=== PATIENT | male | born 2000 | race Hispanic/Latino ===

== ENCOUNTER 2018-01-12 00:31 | Emergency (ER) | payer OTHER, SELFPAY ==
--- NOTE | 2018-01-12 00:58 | EDPHYS ---
Physician Documentation [facility] Name: Michel Rutherford Age: 17 yrs Sex: Male : 2000 Arrival Date: 01/12/2018 Time: 00:34 Bed Waiting Private MD: Jam Myles, A ED Physician Denny Dumont HPI: 01/12 00:56 This 17 yrs old Male presents to ER via Unassigned with complaints of Rash. kb 00:56 The patient's rash thought to be caused by Contact allergy. The rash is located on the kb body diffusely. The rash can be described as macular, papular. Onset: The symptoms/episode began/occurred 2 day(s) ago. Associated signs and symptoms: Pertinent positives: itching, Pertinent negatives: burning sensation, difficulty breathing, fever, nausea, Pain swelling of lips, swelling of throat, swelling of tongue, vomiting, wheezing. Severity of symptoms: At their worst the symptoms were mild moderate in the emergency department the symptoms are unchanged. The patient has not experienced similar symptoms in the past. The patient has not recently seen a physician. Historical: - Allergies: 00:59 No Known Allergies; bb - Home Meds: 00:59 None [Active]; bb - PMHx: 00:59 None; bb - PSHx: 00:59 None; bb - Immunization history:: Adult Immunizations up to date. - Social history:: Smoking status: Patient/guardian denies using tobacco. ROS: 00:56 Constitutional: Negative for fever, chills, and weight loss, Cardiovascular: Negative kb for chest pain, palpitations, and edema, Respiratory: Negative for shortness of breath, cough, wheezing, and pleuritic chest pain, Abdomen/GI: Negative for abdominal pain, nausea, vomiting, diarrhea, and constipation, MS/Extremity: Negative for injury and deformity, Neuro: Negative for headache, weakness, numbness, tingling, and seizure. 00:56 Skin: Positive for rash, diffusely. Exam: 00:56 Constitutional: This is a well developed, well nourished patient who is awake, alert, kb and in no acute distress. Head/Face: Normocephalic, atraumatic. Chest/axilla: Normal chest wall appearance and motion. Nontender with no deformity. No lesions are appreciated. Cardiovascular: Regular rate and rhythm with a normal S1 and S2. No gallops, murmurs, or rubs. Normal PMI, no JVD. No pulse deficits. Respiratory: Lungs have equal breath sounds bilaterally, clear to auscultation and percussion. No rales, rhonchi or wheezes noted. No increased work of breathing, no retractions or nasal flaring. Abdomen/GI: Soft, non-tender, with normal bowel sounds. No distension or tympany. No guarding or rebound. No evidence of tenderness throughout. MS/ Extremity: Pulses equal, no cyanosis. Neurovascular intact. Full, normal range of motion. Neuro: Awake and alert, GCS 15, oriented to person, place, time, and situation. Cranial nerves II-XII grossly intact. Motor strength 5/5 in all extremities. Sensory grossly intact. Cerebellar exam normal. Normal gait. 00:56 Skin: consistent with contact dermatitis, and is diffusely located. Vital Signs: 00:59 BP 133 / 87; Pulse 66; Resp 18 S; Temp 98.4(O); Pulse Ox 100% on R/A; Weight 68.04 kg bb (R); Height 5 ft. 8 in. (172.72 cm) (R); Pain 0/10; 00:59 Body Mass Index 22.81 (68.04 kg, 172.72 cm) bb MDM: 00:52 Patient medically screened. kb 00:56 Data reviewed: vital signs, nurses notes. Data interpreted: Pulse oximetry: on room air kb is 100 %. Interpretation: normal. Counseling: I had a detailed discussion with the patient and/or guardian regarding: the historical points, exam findings, and any diagnostic results supporting the discharge/admit diagnosis, the need for outpatient follow up, a family practitioner, to return to the emergency department if symptoms worsen or persist or if there are any questions or concerns that arise at home. Administered Medications: 01:06 Drug: Pepcid 20 mg Route: PO; bb : Follow up: Response: Medication administered at discharge. bb :06 Drug: predniSONE 40 mg Route: PO; bb : Follow up: Response: Medication administered at discharge. bb Disposition: 01/12/18 00:57 Discharged to Home. Impression: Allergic contact dermatitis. - Condition is Stable. - Discharge Instructions: Poison Arabella, [id number], Contact Dermatitis, [id number]-[id number]. - Prescriptions for Pepcid 20 mg Oral Tablet - take 1 tablet by ORAL route every 12 hours for 5 days; 10 tablet. Prednisone 20 mg Oral Tablet - take 1 tablet by ORAL route once daily for 5 days; 5 tablet. - Medication Reconciliation Form, Thank You Letter, Antibiotic Education, Prescription Opioid Use form. - Follow up: Private Physician; When: 2 - 3 days; Reason: Recheck today's complaints, Continuance of care, Re-evaluation by your physician. Follow up: Emergency Department; When: As needed; Reason: Worsening of condition. Addendum: 01/13/2018 19:00 Co-signature as Attending Physician, Denny Dumont MD I agree with the assessment and c mtz plan of care. Signatures: Brandee Card, RAMP ATTENDANT-C RAMP ATTENDANT-Denny Ortiz MD MD cha Ballard, Brenda, RN RN bb
[2018-01-12] MEDS ORDERED: FAMOTIDINE 20 MG TAB ONE (01:03)
[2018-01-12] MEDS ORDERED: predniSONE 20 MG TAB ONE (01:04)
--- NOTE | 2018-01-12 01:09 | ER ---
Nurse's Notes [facility] Name: Michel Rutherford Age: 17 yrs Sex: Male : 2000 Arrival Date: 01/12/2018 Time: 00:34 Bed Waiting Private MD: Jam Myles A Diagnosis: Allergic contact dermatitis Presentation: 01/12 00:56 Presenting complaint: Patient states: I think I may have gotten into poison edwar a bb couple of days ago I have a rash which it itchy and spreading. Transition of care: patient was not received from another setting of care. Onset of symptoms was January 10, 2018. Initial Sepsis Screen: Does the patient meet any 2 criteria? No. Patient's initial sepsis screen is negative. Does the patient have a suspected source of infection? No. Patient's initial sepsis screen is negative. Care prior to arrival: None. 00:56 Method Of Arrival: Ambulatory bb 00:56 Acuity: QUINTON 5 bb Triage Assessment: 00:59 General: Appears in no apparent distress. Behavior is calm, cooperative. Pain: Denies bb pain. Neuro: Level of Consciousness is awake, alert, obeys commands, Oriented to person, place, time, situation. Cardiovascular: No deficits noted. Respiratory: Respiratory effort is even, unlabored. Derm: Rash noted that is itchy, red. Musculoskeletal: Circulation, motion, and sensation intact. Historical: - Allergies: 00:59 No Known Allergies; bb - Home Meds: 00:59 None [Active]; bb - PMHx: 00:59 None; bb - PSHx: 00:59 None; bb - Immunization history:: Adult Immunizations up to date. - Social history:: Smoking status: Patient/guardian denies using tobacco. Screenin:02 Abuse screen: Denies threats or abuse. Nutritional screening: No deficits noted. bb Tuberculosis screening: No symptoms or risk factors identified. Fall Risk None identified. Assessment: 01:01 Reassessment: No changes from previously documented assessment. see triage assessment. bb Brandee Card SUPERVISOR REFINING in triage for evaluation of pt. 01:07 Reassessment: pt and mother verbalized understanding of and agreed to plan of care bb discharge instructions given pt ambulated with steady gait to exit accompanied by parent. Vital Signs: 00:59 BP 133 / 87; Pulse 66; Resp 18 S; Temp 98.4(O); Pulse Ox 100% on R/A; Weight 68.04 kg bb (R); Height 5 ft. 8 in. (172.72 cm) (R); Pain 0/10; 00:59 Body Mass Index 22.81 (68.04 kg, 172.72 cm) bb ED Course: 00:34 Patient arrived in ED. es 00:35 Jam Myles MD is Private Physician. es 00:52 Brandee Card FNP-C is [facility]. kb 00:52 Denny Dumont MD is Attending Physician. kb 00:56 Nury Mcneil, RN is Primary Nurse. bb 00:59 Triage completed. bb 00:59 Arm band placed on right wrist. Family accompanied patient. bb 01:02 Patient has correct armband on for positive identification. Adult w/ patient. bb 01:02 No provider procedures requiring assistance completed. Patient did not have IV access bb during this emergency room visit. Administered Medications: 01:06 Drug: Pepcid 20 mg Route: PO; bb 01:07 Follow up: Response: Medication administered at discharge. bb 01:06 Drug: predniSONE 40 mg Route: PO; bb 01:07 Follow up: Response: Medication administered at discharge. bb Outcome: 00:57 Discharge ordered by MD. kb 01:08 Discharged to home ambulatory, with family. bb 01:08 Condition: stable 01:08 Discharge instructions given to patient, family, Instructed on discharge instructions, follow up and referral plans. medication usage, Demonstrated understanding of instructions, follow-up care, medications, Prescriptions given X 2. 01:08 Patient left the ED. bb Signatures: Brandee Card FNP-C FNP-Aaliyah Morin Nury Mcneil, RN RN bb
[2018-01-12 01:12] VITALS: BP 133/87; TEMP 98.4; O2SAT 100
== END 2018-01-12 01:08 | disposition home or self-care (01) ==
LOC: ER 00:31
DX: L23.9 Allergic contact dermatitis, unspecified cause (principal)
CPT/HCPCS: 99283; J7512

== ENCOUNTER 2018-05-28 16:21 | Emergency (ER) | payer SELFPAY ==
[2018-05-28] MEDS ORDERED: ONDANSETRON 4 MG/2 ML VIAL ONE (16:47)
[2018-05-28] MEDS ORDERED: MORPHINE 4 MG/ML SYR ONE (16:47)
[2018-05-28 16:55] LABS: Absolute Lymphocytes (CBC) 1.3 K/uL (0.7-4.9); Absolute Monocytes 0.9 K/uL (0.1-1.3); Absolute Neutrophil 14.3 K/uL (1.8-8.0); Basophils % 0.4 % (0-1.3); Eosinophils % 0.1 % (0-4.4); Hematocrit 53.8 % (39.6-49.0); Lymphocytes % 7.9 % (15.3-44.8); MCH 30.5 pg (27.0-35.0); MCV 87.4 fL (80-100); MPV 9.3 fL (7.6-11.3); Monocytes % 5.5 % (3.3-12.3); RBC Red Blood Cell Count 6.15 M/uL (4.33-5.43)
[2018-05-28] MEDS ORDERED: NA CHLORIDE 0.9% 1,000 ML ONE (17:07)
[2018-05-28 17:12] LABS: Albumin 5.6 g/dL (3.4-5.0); Bilirubin Direct 0.2 mg/dL (0-0.2); Bilirubin Total 0.7 mg/dL (0.2-1.0); Potassium 3.6 mmol/L (3.5-5.1); Protein, Total 9.5 g/dL (6.4-8.2)
--- NOTE | 2018-05-28 17:53 | RAD REPORT ---
EXAM DESCRIPTION: CT - Abdomen Pelvis W Contrast - 05/28/2018 5:37 pm CLINICAL HISTORY: Lower abdominal pain, vomiting, IV ONLY<Reason For Exam>Lower abdominal pain, vomi ting, IV ONLY COMPARISON: Abdomen Pelvis W Contrast dated 07/17/2016<Comparisons> TECHNIQUE: Biphasic, helical CT imaging of the abdomen and pelvis was performed following 100 ml non -ionic IV contrast. No oral contrast was given. All CT scans are performed using dose optimization technique as appropriate and may include automated exposure control or mA/KV adjustment according to patient size. FINDINGS: No suspicious findings in the lung bases. The liver, spleen, and pancreas show no suspicious findings. Gallbladder and biliary tree are also wi thout suspicious finding. Symmetric renal function is seen with no hydronephrosis or suspicious renal mass. No dilated bowel loops or bowel wall thickening. Appendix is not well defined. No direct or indirect evidence for appendicitis. No free air, free fluid or inflammatory stranding. No hernia, mass or bul ky lymphadenopathy. The urinary bladder is without significant finding. No adrenal abnormality. No suspicious bony findings. CT findings are not significantly different from June 2016. IMPRESSION: Contrast enhanced CT abdomen and pelvis showing no significant or suspicious finding.
--- NOTE | 2018-05-28 18:48 | ER ---
Nurse's Notes [facility] Name: Michel Rutherford Age: 17 yrs Sex: Male : 2000 Arrival Date: 05/28/2018 Time: 16:23 Bed 8 Private MD: Diagnosis: Vomiting;Unspecified abdominal pain Presentation: 05/28 16:29 Presenting complaint: Patient states: abd pain and vomiting since this morning, la1 actively vomiting in triage. Transition of care: patient was not received from another setting of care. Onset of symptoms was May 28, 2018. Risk Assessment: Do you want to hurt yourself or someone else? Patient reports no desire to harm self or others. Initial Sepsis Screen: Does the patient meet any 2 criteria? No. Patient's initial sepsis screen is negative. Does the patient have a suspected source of infection? No. Patient's initial sepsis screen is negative. Care prior to arrival: None. 16:29 Method Of Arrival: Ambulatory la1 16:29 Acuity: QUINTON 3 la1 Historical: - Allergies: 16:29 No Known Allergies; la1 - PMHx: 16:29 None; la1 - Immunization history:: Adult Immunizations up to date. - Social history:: Smoking status: Patient uses tobacco products, denies chronic smoking, but will smoke occasionally. - Ebola Screening: : No symptoms or risks identified at this time. Screenin:59 Abuse screen: Denies threats or abuse. Nutritional screening: No deficits noted. aa5 Tuberculosis screening: No symptoms or risk factors identified. Fall Risk None identified. Assessment: 16:35 General: Appears uncomfortable, Behavior is calm, cooperative. Pain: Complains of pain aa5 in right upper quadrant, left upper quadrant, right lower quadrant and left lower quadrant Pain does not radiate. Pain currently is 10 out of 10 on a pain scale. Quality of pain is described as crampy, Pain began today Is continuous. Neuro: Level of Consciousness is awake, alert, obeys commands, Oriented to person, place, time, situation. Cardiovascular: Heart tones S1 S2 present Rhythm is regular. Respiratory: Airway is patent Respiratory effort is even, unlabored, Respiratory pattern is regular, symmetrical. GI: Abdomen is flat, non-distended, Bowel sounds present X 4 quads. Abdomen is tender to palpation X 4 quads. Reports nausea, vomiting, since today Patient currently denies diarrhea. : No signs and/or symptoms were reported regarding the genitourinary system. EENT: No signs and/or symptoms were reported regarding the EENT system. Derm: Skin is pink, warm \\T\\ dry. Musculoskeletal: Range of motion: intact in all extremities. 17:03 Reassessment: Patient and/or family updated on plan of care and expected duration. Pain aa5 level reassessed. Patient is alert, oriented x 3, equal unlabored respirations, skin warm/dry/pink. Patient denies pain at this time. Pt states "the nausea is only a little better" . 17:28 Reassessment: Patient and/or family updated on plan of care and expected duration. Pain aa5 level reassessed. Patient is alert, oriented x 3, equal unlabored respirations, skin warm/dry/pink. Patient denies pain at this time. Patient states feeling better. Patient states symptoms have improved. GI: Patient currently denies nausea. 17:28 Reassessment: Pt taken to CT via stretcher . aa5 18:00 Reassessment: Patient and/or family updated on plan of care and expected duration. Pain aa5 level reassessed. Patient is alert, oriented x 3, equal unlabored respirations, skin warm/dry/pink. Patient denies pain at this time. 18:28 Reassessment: Patient and/or family updated on plan of care and expected duration. Pain aa5 level reassessed. Patient is alert, oriented x 3, equal unlabored respirations, skin warm/dry/pink. Patient denies pain at this time. Pt drank 300 cc of water, pt tolerated well, will monitor for vomiting per PA VO.. 18:44 Reassessment: Patient is alert, oriented x 3, equal unlabored respirations, skin aa5 warm/dry/pink. No vomiting noted or reported. . Vital Signs: 16:29 BP 131 / 84; Pulse 100; Resp 19; Temp 97.6; Pulse Ox 100% on R/A; Weight 70.31 kg; la1 Height 5 ft. 8 in. (172.72 cm); 17:00 BP 130 / 94; Pulse 58; Resp 16 S; Pulse Ox 95% on R/A; Pain 0/10; aa5 17:28 Pulse 56; Resp 14 S; Pulse Ox 100% on R/A; aa5 18:02 BP 123 / 72; Pulse 62; Resp 16 S; Pulse Ox 99% on R/A; aa5 16:29 Body Mass Index 23.57 (70.31 kg, 172.72 cm) la1 ED Course: 16:23 Patient arrived in ED. mr 16:29 Triage completed. la1 16:30 Arm band placed on right wrist. la1 16:31 Ashwini Brooks, URMILA is Primary Nurse. aa5 16:33 Lobito Orr PA is PHCP. jmm 16:33 Homero Gonzalez MD is Attending Physician. jmm 16:35 Patient has correct armband on for positive identification. Bed in low position. Call aa5 light in reach. Side rails up X2. Adult w/ patient. 16:37 Inserted saline lock: 20 gauge in right antecubital area, using aseptic technique. aa5 Blood collected. 16:42 Initial lab(s) drawn, by me, sent to lab. aa5 17:37 CT Abd/Pelvis - W/Contrast In Process Unspecified. EDMS 17:37 CT completed. Patient tolerated procedure well. Patient moved back from CT. bq 18:34 No provider procedures requiring assistance completed. aa5 18:47 Yoni Marion MD is Referral Physician. [facility] 19:00 IV discontinued, intact, bleeding controlled, No redness/swelling at site. Pressure aa5 dressing applied. Administered Medications: 16:43 Drug: morphine 4 mg Route: IVP; Site: right antecubital; aa5 17:03 Follow up: Response: No adverse reaction aa5 16:43 Drug: Zofran 4 mg Route: IVP; Site: right antecubital; aa5 17:03 Follow up: Response: No adverse reaction aa5 17:03 Drug: NS 0.9% 1000 ml Route: IV; Rate: 1 bolus; Site: right antecubital; aa5 18:02 Follow up: IV Status: Completed infusion aa5 18:44 Drug: Phenergan 6.25 mg Route: IVP; Site: right antecubital; aa5 18:50 Follow up: Response: No adverse reaction; Nausea is decreased aa5 Outcome: 18:47 Discharge ordered by . [facility] 19:00 Discharged to home ambulatory, with family. aa5 19:00 Condition: improved 19:00 Discharge instructions given to patient, Instructed on discharge instructions, follow up and referral plans. medication usage, Demonstrated understanding of instructions, follow-up care, medications, Prescriptions given X 1. 19:01 Patient left the ED. aa5 Signatures: Dispatcher [employer] EDMS Lobito Orr PA PA jmm Rivera, Maria AugustevangelinaIvania Audri RN RN aa5 Padilla Montana RN RN la1
--- NOTE | 2018-05-28 18:49 | EDPHYS ---
Physician Documentation [facility] Name: Michel Rutherford Age: 17 yrs Sex: Male : 2000 Arrival Date: 05/28/2018 Time: 16:23 Bed 8 Private MD: ED Physician Homero Gonzalez HPI: 05/28 17:31 This 17 yrs old Male presents to ER via Ambulatory with complaints of jmm Abdominal Pain, Vomiting. 17:31 The patient presents with abdominal pain in the lower abdomen. Onset: The jmm symptoms/episode began/occurred gradually, this morning. The symptoms do not radiate. Associated signs and symptoms: Pertinent positives: vomiting. This is a 17 yea rold male with no chronic medical conditions that presents to the ED with vomiting beginning this morning. patient states he drank 3 beers last night and describes himself as a "lightweight". Patient denies diarrhea, denies fever, denies recent abx use. . Historical: - Allergies: 16:29 No Known Allergies; la1 - PMHx: 16:29 None; la1 - Immunization history:: Adult Immunizations up to date. - Social history:: Smoking status: Patient uses tobacco products, denies chronic smoking, but will smoke occasionally. - Ebola Screening: : No symptoms or risks identified at this time. ROS: 17:31 Constitutional: Negative for fever, chills, and weight loss, Cardiovascular: Negative jmm for chest pain, palpitations, and edema, Respiratory: Negative for shortness of breath, cough, wheezing, and pleuritic chest pain. 17:31 Back: Negative for injury and pain, MS/Extremity: Negative for injury and deformity, Skin: Negative for injury, rash, and discoloration. 17:31 Abdomen/GI: Positive for vomiting. 17:31 All other systems are negative. Exam: 17:31 Head/Face: atraumatic. Chest/axilla: Normal chest wall appearance and motion. jmm Cardiovascular: Regular rate and rhythm. No edema appreciated Respiratory: Normal respirations, no respiratory distress appreciated 17:31 Constitutional: The patient appears in no acute distress, alert, awake. 17:31 Abdomen/GI: Bowel sounds: normal, Palpation: soft, mild abdominal tenderness, in the left lower quadrant. 17:31 Skin: Appearance: Color: normal in color. 17:31 Neuro: Orientation: is normal, Mentation: is normal, Memory: is normal, Gait: is steady. 17:31 Psych: Behavior/mood is pleasant, cooperative. Vital Signs: 16:29 BP 131 / 84; Pulse 100; Resp 19; Temp 97.6; Pulse Ox 100% on R/A; Weight 70.31 kg; la1 Height 5 ft. 8 in. (172.72 cm); 17:00 BP 130 / 94; Pulse 58; Resp 16 S; Pulse Ox 95% on R/A; Pain 0/10; aa5 17:28 Pulse 56; Resp 14 S; Pulse Ox 100% on R/A; aa5 18:02 BP 123 / 72; Pulse 62; Resp 16 S; Pulse Ox 99% on R/A; aa5 16:29 Body Mass Index 23.57 (70.31 kg, 172.72 cm) la1 MDM: 16:59 Patient medically screened. [facility] 18:46 Data reviewed: vital signs, nurses notes, lab test result(s), radiologic studies, CT [facility] scan. Counseling: I had a detailed discussion with the patient and/or guardian regarding: the historical points, exam findings, and any diagnostic results supporting the discharge/admit diagnosis, lab results, radiology results, the need for outpatient follow up, to return to the emergency department if symptoms worsen or persist or if there are any questions or concerns that arise at home. ED course: Patient tolerates PO in the ED. Patient states feeling much better. Given early appendicitis return precautions. Family understood and agree with the plan of care. . 18:46 Response to treatment: the patient's symptoms have markedly improved after treatment. [facility] 05/28 16:37 Order name: Amylase, Serum; Complete Time: 17:34 [facility] 05/28 16:37 Order name: Basic Metabolic Panel; Complete Time: 17:34 [facility] 05/28 16:37 Order name: CBC with Diff; Complete Time: 17:12 [facility] 05/28 16:37 Order name: Creatinine for Radiology; Complete Time: 17:12 [facility] 05/28 16:37 Order name: Hepatic Function; Complete Time: 17:34 [facility] 05/28 16:37 Order name: Lipase; Complete Time: 17:34 [facility] 05/28 16:37 Order name: IV Saline Lock; Complete Time: 16:53 [facility] 05/28 16:37 Order name: Labs collected and sent; Complete Time: 16:53 [facility] 05/28 17:13 Order name: CT Abd/Pelvis - W/Contrast; Complete Time: 18:00 [facility] Administered Medications: 16:43 Drug: morphine 4 mg Route: IVP; Site: right antecubital; aa5 17:03 Follow up: Response: No adverse reaction aa5 16:43 Drug: Zofran 4 mg Route: IVP; Site: right antecubital; aa5 17:03 Follow up: Response: No adverse reaction aa5 17:03 Drug: NS 0.9% 1000 ml Route: IV; Rate: 1 bolus; Site: right antecubital; aa5 18:02 Follow up: IV Status: Completed infusion aa5 18:44 Drug: Phenergan 6.25 mg Route: IVP; Site: right antecubital; aa5 18:50 Follow up: Response: No adverse reaction; Nausea is decreased aa5 Disposition: 19:02 Co-signature as Attending Physician, Homero Gonzalez MD I agree with the assessment and kdr plan of care. Disposition: 05/28/18 18:47 Discharged to Home. Impression: Vomiting, Unspecified abdominal pain. - Condition is Stable. - Discharge Instructions: Abdominal Pain, Adult, Nausea and Vomiting, Adult. - Prescriptions for Zofran ODT 4 mg Oral tablet,disintegrating - place 1 tablet by TRANSLINGUAL route every 4-6 hours; 30 tablet. - Medication Reconciliation Form, Thank You Letter, Antibiotic Education, Prescription Opioid Use form. - Follow up: Yoni Marion MD; When: 2 - 3 days; Reason: Recheck today's complaints, Continuance of care, Re-evaluation by your physician. Signatures: Dispatcher [employer] [facility] Homero Gonzalez MD MD kdr Mickail, Joel, PA PA [facility] Ashwini Brooks RN RN aa5 Padilla Montana RN RN la1 Corrections: (The following items were deleted from the chart) 18:33 16:37 Urine Dipstick-Ancillary ordered. [facility] aa5 19:01 18:47 05/28/2018 18:47 Discharged to Home. Impression: Vomiting; Unspecified abdominal aa5 pain. Condition is Stable. Forms are Medication Reconciliation Form, Thank You Letter, Antibiotic Education, Prescription Opioid Use. Follow up: Yoni Marion; When: 2 - 3 days; Reason: Recheck today's complaints, Continuance of care, Re-evaluation by your physician. bryn
[2018-05-28] MEDS ORDERED: PROMETHAZINE 25 MG/ML VIAL ONE (18:50)
[2018-05-28 19:09] VITALS: TEMP 97.6
[2018-05-28 19:13] VITALS: BP 123/72; O2SAT 99
== END 2018-05-28 19:01 | disposition home or self-care (01) ==
LOC: ER 16:21
DX: R11.10 Vomiting, unspecified (principal); R10.30 Lower abdominal pain, unspecified; F17.200 Nicotine dependence, unspecified, uncomplicated
CPT/HCPCS: 36415; 74177; 80048; 80076; 82150; 83690; 85025; 96361; 96374; 96375; 99284; J2405; J2550; J7030; Q9967

== ENCOUNTER 2018-10-03 15:51 | Emergency (ER) | payer SELFPAY ==
[2018-10-03] MEDS ORDERED: NA CHLORIDE 0.9% 1,000 ML ONE (16:19)
[2018-10-03] MEDS ORDERED: ONDANSETRON 4 MG/2 ML VIAL ONE (16:19)
[2018-10-03 16:30] LABS: Absolute Lymphocytes (CBC) 2.2 K/uL (0.7-4.9); Absolute Monocytes 0.6 K/uL (0.1-1.3); Absolute Neutrophil 4.4 K/uL (1.8-8.0); Basophils % 0.5 % (0-1.3); Eosinophils % 1.3 % (0-4.4); Lymphocytes % 29.9 % (15.3-44.8); MPV 9.4 fL (7.6-11.3); Monocytes % 7.8 % (3.3-12.3); RBC Red Blood Cell Count 5.73 M/uL (4.33-5.43)
[2018-10-03 16:38] LABS: ALT/SGPT 30 U/L (12-78); AST/SGOT 16 U/L (15-37); Albumin 4.4 g/dL (3.4-5.0); Alkaline Phosphatase 110 U/L (45-117); BUN Blood Urea Nitrogen 7 mg/dL (7-18); Bicarbonate 18 mmol/L (21-32); Bilirubin Direct < 0.1 mg/dL (0-0.2); Bilirubin Total 0.3 mg/dL (0.2-1.0); Creatine Phosphokinase 124 U/L (39-308); Glucose Level 93 mg/dL (74-106); Lipase 126 U/L (73-393); Magnesium 2.4 mg/dL (1.8-2.4); Potassium 3.6 mmol/L (3.5-5.1); Protein, Total 8.2 g/dL (6.4-8.2); Sodium Level 140 mmol/L (136-145); Troponin (Emerg Dept Use Only) < 0.02 ng/mL (0.0-0.045)
--- NOTE | 2018-10-03 16:39 | RAD REPORT ---
EXAM DESCRIPTION: CT - Head Brain Wo Cont - 10/03/2018 4:23 pm CLINICAL HISTORY: Seizure COMPARISON: None. TECHNIQUE: Computed axial tomography of the head was obtained. IV contrast was not requested. All CT scans are performed using dose optimization technique as appropriate and may include automated exposure control or mA/KV adjustment according to patient size. FINDINGS: An intracranial bleed is not seen . The ventricles are normal in caliber. No extra-axial fluid collection is noted. Fluid within the sinuses/ mastoids is not seen. IMPRESSION: No acute intracranial abnormality is seen. If patient's symptoms persist MRI of the bra in would be recommended.
[2018-10-03 17:01] LABS: Platelet Estimate ADEQ; Urine White Blood Cell Casts OK
[2018-10-03 17:02] LABS: Blood Morphology Comment NOT SEEN (NOT SEEN)
--- NOTE | 2018-10-03 17:53 | EDPHYS ---
Physician Documentation [facility] Name: Michel Rutherford Age: 18 yrs Sex: Male : 2000 Arrival Date: 10/03/2018 Time: 15:52 Bed 3 Private MD: ED Physician Rudi Hough HPI: 10/03 16:32 This 18 yrs old Male presents to ER via Wheelchair with complaints of Probable rn Seizure. 16:32 The patient presents after having a single isolated seizure, the episode(s) was rn witnessed, by a friend. Character of seizure(s): Loss of consciousness: it is not known if the patient experienced loss of consciousness, Motor activity: generalized, Incontinence: none, Apnea: the patient did not experience apnea, Circulation: the patient did not experience evidence of pulse disturbance. Seizure onset: just prior to arrival. Current symptoms: confusion. The patient has not experienced similar symptoms in the past. Friends report in the backseat of their car, arms became tonic, then drooling, seemed like "seizure", lasted about 1 minute, then became confused, now back to normal. Patient denies drug use, no head trauma.. Historical: - Allergies: 16:12 No Known Allergies; iw - Home Meds: 16:12 None [Active]; iw - PMHx: 16:13 None; iw - PSHx: 16:13 None; iw - Immunization history:: Adult Immunizations unknown. - Social history:: Smoking status: unknown. - Ebola Screening: : No symptoms or risks identified at this time. - Family history:: not pertinent. - Hospitalizations: : No recent hospitalization is reported. ROS: 16:32 Constitutional: Negative for fever, chills, and weight loss, Eyes: Negative for injury, rn pain, redness, and discharge, Neck: Negative for injury, pain, and swelling, Cardiovascular: Negative for chest pain, palpitations, and edema, Respiratory: Negative for shortness of breath, cough, wheezing, and pleuritic chest pain, Abdomen/GI: + nausea, no abd pain MS/Extremity: Negative for injury and deformity, Skin: Negative for injury, rash, and discoloration, Neuro: Negative for headache, weakness, numbness, tingling Exam: 16:32 Constitutional: This is a well developed, well nourished patient who is awake, alert, rn and in no acute distress. Actively vomiting. Head/Face: Normocephalic, atraumatic. Eyes: Pupils equal round and reactive to light, extra-ocular motions intact. Lids and lashes normal. Conjunctiva and sclera are non-icteric and not injected. Cornea within normal limits. Periorbital areas with no swelling, redness, or edema. ENT: No oral trauma Neck: Trachea midline, no thyromegaly or masses palpated, and no cervical lymphadenopathy. Supple, full range of motion without nuchal rigidity, or vertebral point tenderness. No Meningismus. Cardiovascular: Regular rate and rhythm with a normal S1 and S2. No gallops, murmurs, or rubs. Normal PMI, no JVD. No pulse deficits. Respiratory: Lungs have equal breath sounds bilaterally, clear to auscultation and percussion. No rales, rhonchi or wheezes noted. No increased work of breathing, no retractions or nasal flaring. Abdomen/GI: Soft, non-tender, with normal bowel sounds. No distension or tympany. No guarding or rebound. No evidence of tenderness throughout. Skin: Warm, dry with normal turgor. Normal color with no rashes, no lesions, and no evidence of cellulitis. MS/ Extremity: Pulses equal, no cyanosis. Neurovascular intact. Full, normal range of motion. Equal circumference. Neuro: Awake and alert, GCS 15, oriented to person, place, time, and situation. Cranial nerves II-XII grossly intact. Motor strength 5/5 in all extremities. Sensory grossly intact. Cerebellar exam normal. Vital Signs: 16:10 BP 144 / 100; Pulse 103; Resp 16 S; Pulse Ox 100% on R/A; ss 16:28 BP 131 / 89; Pulse 89; Resp 16; Temp 98.2(TE); Pulse Ox 100% on R/A; Pain 0/10; iw 17:40 BP 132 / 72; Pulse 77; Resp 17; Temp 98.2; Pulse Ox 100% on R/A; Pain 0/10; sg [place] Coma Score: 16:45 Eye Response: spontaneous(4). Verbal Response: oriented(5). Motor Response: obeys sg commands(6). Total: 15. MDM: 15:52 Patient medically screened. rn 17:50 Differential diagnosis: seizure. Data reviewed: vital signs, nurses notes, lab test rn result(s), EKG, radiologic studies, CT scan, and as a result, I will discharge patient. Counseling: I had a detailed discussion with the patient and/or guardian regarding: the historical points, exam findings, and any diagnostic results supporting the discharge/admit diagnosis, lab results, radiology results, the need for outpatient follow up, to return to the emergency department if symptoms worsen or persist or if there are any questions or concerns that arise at home. Response to treatment: the patient's symptoms have resolved after treatment, the patient's condition has returned to base line, the patient is now symptom free, and as a result, I will discharge patient. Special discussion: I discussed with the patient/guardian in detail that at this point there is no indication for admission to the hospital. It is understood, however, that if the symptoms persist or worsen the patient needs to return immediately for re-evaluation. ED course: Pt completely back to baseline, normal vitals, playing on cell phone, legs crossed, will dc home with pcp f/u, patient reports thinks family member with epilepsy, told him to take it easy, no driving until cleared. . 10/03 15:59 Order name: Basic Metabolic Panel; Complete Time: 16:57 rn 10/03 15:59 Order name: CBC with Diff; Complete Time: 17:08 rn 10/03 15:59 Order name: CPK; Complete Time: 16:57 rn 10/03 15:59 Order name: Hepatic Function; Complete Time: 16:57 rn 10/03 15:59 Order name: Lipase; Complete Time: 16:57 rn 10/03 15:59 Order name: CT Head Brain wo Cont; Complete Time: 16:57 rn 10/03 15:59 Order name: Magnesium; Complete Time: 16:57 rn 10/03 15:59 Order name: Troponin (emerg Dept Use Only); Complete Time: 16:57 rn 10/03 15:59 Order name: EKG; Complete Time: 16:03 rn 10/03 16:35 Order name: CBC Smear Scan; Complete Time: 17:08 EDMS 10/03 15:59 Order name: Cardiac monitoring; Complete Time: 16:39 rn 10/03 15:59 Order name: EKG - Nurse/Tech; Complete Time: 16:22 rn 10/03 15:59 Order name: IV Saline Lock; Complete Time: 16:10 rn 10/03 15:59 Order name: Labs collected and sent; Complete Time: 16:23 rn 10/03 15:59 Order name: NPO; Complete Time: 16:23 rn 10/03 15:59 Order name: O2 Per Protocol; Complete Time: 16:23 rn 10/03 15:59 Order name: O2 Sat Monitoring; Complete Time: 16:23 rn Administered Medications: 16:19 Drug: Zofran 4 mg Route: IVP; Site: right antecubital; iw 17:53 Not Given (Patient Refused): NS 0.9% 1000 ml IV at 1000 ml once iw Disposition: 10/03/18 17:52 Discharged to Home. Impression: New onset seizure. - Condition is Stable. - Discharge Instructions: Seizure, Adult. - Medication Reconciliation Form, Thank You Letter, Antibiotic Education, Prescription Opioid Use form. - Follow up: Yadiel Cabrera MD; When: As needed; Reason: Recheck today's complaints, Re-evaluation by your physician. - Problem is new. - Symptoms have improved. Signatures: Dispatcher [employer] EDRI Stacia Ramirez RN RN iw Rudi Hough MD MD rn Calderon, Audri, RN RN lynette Koki Nunes RN RN ss Corrections: (The following items were deleted from the chart) 16:04 16:00 Head Brain Wo Cont ordered. [facility] EDRI 16:12 15:52 Allergies: Unable to obtain; [facility] 16:13 15:52 PMHx: Unable to obtain; [facility] 16:13 15:52 PSHx: Unable to obtain; [facility] 17:53 15:59 Urine Dipstick-Ancillary ordered. rn iw 18:10 17:52 10/03/2018 17:52 Discharged to Home. Impression: New onset seizure. Condition is ss Stable. Forms are Medication Reconciliation Form, Thank You Letter, Antibiotic Education, Prescription Opioid Use. Follow up: Yadiel Cabrera; When: As needed; Reason: Recheck today's complaints, Re-evaluation by your physician. Problem is new. Symptoms have improved. rn
--- NOTE | 2018-10-03 17:53 | ER ---
Nurse's Notes [facility] Name: Michel Rutherford Age: 18 yrs Sex: Male : 2000 Arrival Date: 10/03/2018 Time: 15:52 Bed 3 Private MD: Diagnosis: New onset seizure Presentation: 10/03 15:52 Presenting complaint: Friend states: "we were on our way to the gas station when he aa5 started having a seizure". Pt currently confused A \\T\\ O x 1. Pt vomited once upon ER arrival. Transition of care: patient was not received from another setting of care. Onset of symptoms was October 03, 2018. Care prior to arrival: None. 15:52 Acuity: QUINT[place] 2 aa5 15:52 Method Of Arrival: Wheelchair aa5 16:45 Risk Assessment: Do you want to hurt yourself or someone else? Patient reports no sg desire to harm self or others. Initial Sepsis Screen: Does the patient meet any 2 criteria? No. Patient's initial sepsis screen is negative. Does the patient have a suspected source of infection? No. Patient's initial sepsis screen is negative. Triage Assessment: 16:45 General: Appears in no apparent distress. sg Historical: - Allergies: 16:12 No Known Allergies; iw - Home Meds: 16:12 None [Active]; iw - PMHx: 16:13 None; iw - PSHx: 16:13 None; iw - Immunization history:: Adult Immunizations unknown. - Social history:: Smoking status: unknown. - Ebola Screening: : No symptoms or risks identified at this time. - Family history:: not pertinent. - Hospitalizations: : No recent hospitalization is reported. Screenin:20 Abuse screen: Denies threats or abuse. Denies injuries from another. Nutritional iw screening: No deficits noted. Tuberculosis screening: No symptoms or risk factors identified. Fall Risk IV access (20 points). Assessment: 16:19 General: Appears in no apparent distress. Behavior is calm, cooperative. General: iw Denies fever, chills. Pain: Denies pain. Neuro: Level of Consciousness is awake, alert, obeys commands, Oriented to person, place, time, situation, Moves all extremities. Full function. Cardiovascular: Patient's skin is warm and dry. Respiratory: Respiratory effort is even, unlabored. GI: Reports vomiting. Derm: Skin is intact, is healthy with good turgor. Musculoskeletal: Range of motion: intact in all extremities. 16:23 Reassessment: pt states that he is feeling better and he thinks he just passed out, pt iw requesting to leave, pt advised that it would be best for him to have CT done, labs had already been sent, pt concerned about medical bill, pt agrees to stay for lab results and CT results. Vital Signs: 16:10 BP 144 / 100; Pulse 103; Resp 16 S; Pulse Ox 100% on R/A; ss 16:28 BP 131 / 89; Pulse 89; Resp 16; Temp 98.2(TE); Pulse Ox 100% on R/A; Pain 0/10; iw 17:40 BP 132 / 72; Pulse 77; Resp 17; Temp 98.2; Pulse Ox 100% on R/A; Pain 0/10; sg [place] Coma Score: 16:45 Eye Response: spontaneous(4). Verbal Response: oriented(5). Motor Response: obeys sg commands(6). Total: 15. ED Course: 15:50 Initial lab(s) drawn, by me, sent to lab. Inserted saline lock: 18 gauge in right iw antecubital area, using aseptic technique. Blood collected. 15:52 Patient arrived in ED. la1 15:52 Rudi Hough MD is Attending Physician. rn 15:52 Arm band placed on Patient placed in an exam room, on a stretcher. aa5 15:53 Stacia Ramirez RN is Primary Nurse. iw 15:55 Triage completed. aa5 16:23 CT Head Brain wo Cont In Process Unspecified. EDMS 16:24 CT completed. Patient tolerated procedure well. Patient moved to CT. Patient moved back nj from CT. 16:25 Patient has correct armband on for positive identification. Bed in low position. Call sg light in reach. Side rails up X2. Seizure precautions initiated. product representative on. Pulse ox on. NIBP on. 16:39 EKG done, by medical records technician. reviewed by Rudi Hough MD. dt2 16:40 No provider procedures requiring assistance completed. IV discontinued, intact, sg bleeding controlled, No redness/swelling at site. Pressure dressing applied. 17:51 Yadiel Cabrera MD is Referral Physician. rn Administered Medications: 16:19 Drug: Zofran 4 mg Route: IVP; Site: right antecubital; iw 17:53 Not Given (Patient Refused): NS 0.9% 1000 ml IV at 1000 ml once iw Outcome: 17:52 Discharge ordered by . rn 18:00 Discharged to home ambulatory, with friend. 18:00 Condition: good 18:00 Discharge instructions given to patient, Instructed on discharge instructions, follow up and referral plans. safety practices, Demonstrated understanding of instructions, follow-up care, medications. 18:10 Patient left the ED. ss Signatures: Dispatcher [employer] EDMS Praveen Jade RN RN Stacia Ramirez RN URMILA Rudi Hough MD MD rn Calderon, Audri RN URMILA [email or web address] Koki Nunes RN RN Padilla Montana RN RN la1 David, Michel Cisneros, Uma noble2 Corrections: (The following items were deleted from the chart) 15:56 15:54 Presenting complaint: Friend states: "we were on our way to the gas station when aa5 he started having a seizure". Pt currently confused A \\T\\ O x 1. Pt vomited once upon ER arrival [facility] 15:56 15:54 Transition of care: patient was not received from another setting of care. [place] [id number] 15:56 15:54 Onset of symptoms was October 03, 2018 [place] [id number] 15:56 15:54 Care prior to arrival: None. [place] [id number] 15:56 15:54 Method Of Arrival: Wheelchair [place] [id number] 15:56 15:54 Acuity: [place] 2 [place] [id number] 16:12 15:52 Allergies: Unable to obtain; 5 16:13 15:52 PMHx: Unable to obtain; aa5 16:13 15:52 PSHx: Unable to obtain; [facility]
--- NOTE | 2018-10-03 19:13 | EKG ---
Test Date: 2018-10-03 Test Time: 16:33:12 Electric Track Switch Maintainer: WOJCIECH MEASUREMENT RESULTS: Intervals: Rate: 77 IA: 166 QRSD: 96 QT: 374 QTc: 423 [place]: P: 59 IA: 166 QRS: 66 T: 43 INTERPRETIVE STATEMENTS: Normal sinus rhythm Normal ECG Compared to ECG 06/19/2016 14:51:10 Sinus bradycardia no longer present Electronically Signed On 10-03-18 19:12:57 REFLOW OPERATOR by Christopher Alvarado
[2018-10-04 00:48] VITALS: O2SAT 100
[2018-10-04 00:50] VITALS: BP 131/89; TEMP 98.2
== END 2018-10-03 18:10 | disposition home or self-care (01) ==
LOC: ER 15:51
DX: G40.89 Other seizures (principal)
CPT/HCPCS: 36415; 70450; 80048; 80076; 82550; 83690; 83735; 84484; 85025; 93005; 96374; 99285; J2405; J7030

== ENCOUNTER 2019-01-23 23:40 | Emergency (ER) | payer SELFPAY ==
[2019-01-24 00:07] LABS: Absolute Lymphocytes (CBC) 1.8 K/uL (0.7-4.9); Absolute Monocytes 0.4 K/uL (0.1-1.3); Absolute Neutrophil 4.6 K/uL (1.8-8.0); Basophils % 0.8 % (0-1.3); Eosinophils % 0.9 % (0-4.4); Hematocrit 49.6 % (39.6-49.0); MPV 9.6 fL (7.6-11.3); Monocytes % 5.5 % (3.3-12.3); RBC Red Blood Cell Count 5.65 M/uL (4.33-5.43)
[2019-01-24 00:14] LABS: Protime INR 0.95
[2019-01-24] MEDS ORDERED: NA CHLORIDE 0.9% 1,000 ML ONE (00:14)
[2019-01-24] MEDS ORDERED: ONDANSETRON 4 MG/2 ML VIAL ONE (00:23)
[2019-01-24 00:28] LABS: ALT/SGPT 37 U/L (12-78); AST/SGOT 16 U/L (15-37); Albumin 4.7 g/dL (3.4-5.0); Alkaline Phosphatase 90 U/L (45-117); BUN Blood Urea Nitrogen 14 mg/dL (7-18); Bicarbonate 25 mmol/L (21-32); Bilirubin Direct 0.1 mg/dL (0-0.2); Bilirubin Total 0.4 mg/dL (0.2-1.0); Glucose Level 134 mg/dL (74-106); Potassium 3.9 mmol/L (3.5-5.1); Protein, Total 8.1 g/dL (6.4-8.2); Sodium Level 139 mmol/L (136-145)
[2019-01-24] MEDS ORDERED: IBUPROFEN 400 MG TAB ONE (01:46)
[2019-01-24 02:03] LABS: Urine Glucose NEGATIVE (NEG); Urine Specific Gravity >1.030 (1.005-1.030)
[2019-01-24 02:04] LABS: Urine Blood 1+ (NEG); Urine Protein 1+ (NEG); Urine pH 5.5 (5.0-7.0)
[2019-01-24 02:26] LABS: Barbiturates NEGATIVE (NEGATIVE); Benzodiazepines NEGATIVE (NEGATIVE); Cocaine NEGATIVE (NEGATIVE); METHAMPHETAM NEGATIVE (NEGATIVE); Methadone NEGATIVE (NEGATIVE); Opiates NEGATIVE (NEGATIVE); Phencyclidine NEGATIVE (NEGATIVE); THC Cannibis NEGATIVE (NEGATIVE)
--- NOTE | 2019-01-24 02:38 | ER ---
Nurse's Notes [facility] Name: Michel Rutherford Age: 18 yrs Sex: Male : 2000 Arrival Date: 01/23/2019 Time: 23:41 Bed 6 Private MD: Diagnosis: seizure;drug abuse;vomiting Presentation: 01/23 23:41 Presenting complaint: EMS states: pt was going to [employer] with his friend and aa1 suddenly reported that he did not feel well and his friend reports that pt tensed up and began vomiting. Upon EMS arrival pt still actively vomiting and was unable to answer where he was or the date. Upon arrival to ED pt oriented to person, place, and year but confused on month or day. Pt continues to vomit during triage. Transition of care: patient was not received from another setting of care. Onset of symptoms was January 23, 2019. Risk Assessment: Do you want to hurt yourself or someone else? Patient reports no desire to harm self or others. Initial Sepsis Screen: Does the patient meet any 2 criteria? No. Patient's initial sepsis screen is negative. Does the patient have a suspected source of infection? No. Patient's initial sepsis screen is negative. Care prior to arrival: IV initiated. 20 GA, in the left antecubital area, Glucose check: 135. 23:41 Method Of Arrival: EMS: [facility] aa1 23:41 Acuity: QUINT[place] 3 aa1 Historical: - Allergies: 23:57 No Known Allergies; aa1 - Home Meds: 23:57 None [Active]; aa1 - PMHx: 23:57 Seizures; aa1 - PSHx: 23:57 None; aa1 - Immunization history:: Flu vaccine is not up to date. - Social history:: Smoking status: Patient/guardian denies using tobacco, Patient/guardian denies using street drugs, IV drugs. - Ebola Screening: : No symptoms or risks identified at this time. Screenin:43 Abuse screen: Denies threats or abuse. Denies injuries from another. Nutritional aa1 screening: No deficits noted. Tuberculosis screening: No symptoms or risk factors identified. Fall Risk None identified. Assessment: 23:43 General: Appears in no apparent distress. uncomfortable, Behavior is calm, cooperative, aa1 appropriate for age. Pain: Complains of pain in scalp Quality of pain is described as aching, throbbing, Is continuous. Neuro: Level of Consciousness is awake, alert, obeys commands, Oriented to person, place, time, situation, Moves all extremities. Speech is normal, Facial symmetry appears normal, Pupils are PERRLA, Intact Reports headache. Cardiovascular: Denies chest pain, lightheadedness, shortness of breath, Heart tones S1 S2 present Rhythm is regular. Respiratory: Airway is patent Respiratory effort is even, unlabored, Respiratory pattern is regular, symmetrical. GI: Abdomen is non-distended, Pt is actively vomiting clear fluid, Abd is soft and non tender Reports nausea, vomiting. : No signs and/or symptoms were reported regarding the genitourinary system. EENT: No signs and/or symptoms were reported regarding the EENT system. Derm: Skin is intact, is healthy with good turgor, Skin is pink, warm \T\ dry. Musculoskeletal: Circulation, motion, and sensation intact. Capillary refill < 3 seconds. 01/24 00:17 Reassessment: Patient appears in no apparent distress at this time. Patient and/or aa1 family updated on plan of care and expected duration. Pain level reassessed. Patient is alert, oriented x 3, equal unlabored respirations, skin warm/dry/pink. Pt reports he thinks his symptoms may be related to some CBD oil he smoked. Reports he has been smoking it for about a month and today he bought a new bottle but it was a different kind and his symptoms began almost immediately after he smoked it. 01:26 Reassessment: Patient appears in no apparent distress at this time. Patient and/or aa1 family updated on plan of care and expected duration. Pain level reassessed. Patient is alert, oriented x 3, equal unlabored respirations, skin warm/dry/pink. Awaiting provider reassessment. 01:44 Reassessment: Pt requesting medicine for headache. PO fluids given at this time. aa1 02:35 Reassessment: Patient appears in no apparent distress at this time. Patient and/or aa1 family updated on plan of care and expected duration. Pain level reassessed. Patient is alert, oriented x 3, equal unlabored respirations, skin warm/dry/pink. Awaiting provider reassessment Patient states symptoms have improved. 02:48 Reassessment: Patient appears in no apparent distress at this time. Patient is alert, aa1 oriented x 3, equal unlabored respirations, skin warm/dry/pink. Discussed d/c \T\ f/u instructions with pt; denies questions or concerns at this time. Amb to lobby with steady gait. Patient states feeling better. Vital Signs: 01/23 23:41 BP 115 / 64; Pulse 95; Resp 20; Temp 98.3; Pulse Ox 99% on R/A; Weight 72.57 kg; Height aa1 5 ft. 8 in. (172.72 cm); Pain 05/06; 01/24 00:50 BP 104 / 66; Pulse 66; Resp 20; Pulse Ox 99% on R/A; tl2 01:26 BP 129 / 76; Pulse 61; Resp 14; Pulse Ox 99% on R/A; aa1 02:35 BP 102 / 57; Pulse 61; Resp 16; Pulse Ox 98% on R/A; aa1 01/23 23:41 Body Mass Index 24.33 (72.57 kg, 172.72 cm) aa1 ED Course: 01/23 23:41 Patient arrived in ED. ds1 23:41 Lobito Orr PA is PHCP. jmm 23:41 Franco Payne MD is Attending Physician. jmm 23:41 Arm band placed on left wrist. Patient placed in an exam room, on a stretcher. aa1 23:43 Patient has correct armband on for positive identification. Placed in gown. Bed in low aa1 position. Call light in reach. school lunch monitor on. Pulse ox on. NIBP on. 23:55 Triage completed. aa1 23:58 Initial lab(s) drawn, by ga, sent to lab. Maintain EMS IV. Dressing intact. Good blood tl2 return noted. Site clean \T\ dry. Gauge \T\ site: 20 g L AC. 23:59 Lakeisha Paredes, URMILA is Primary Nurse. aa1 01/24 02:37 Yadiel Cabrera MD is Referral Physician. [facility] 02:48 No provider procedures requiring assistance completed. IV discontinued, intact, aa1 bleeding controlled, No redness/swelling at site. Pressure dressing applied. Administered Medications: 00:16 Drug: NS 0.9% 1000 ml Route: IV; Rate: 1 bolus; Site: left antecubital; aa1 01:43 Follow up: IV Status: Completed infusion; IV Intake: 1000ml aa1 00:16 Drug: Zofran 4 mg Route: IVP; Site: left antecubital; aa1 01:16 Follow up: Response: No adverse reaction; Nausea is decreased aa1 01:44 Drug: Motrin 400 mg Route: PO; aa1 02:44 Follow up: Response: No adverse reaction; Pain is decreased aa1 Intake: 01:43 IV: 1000ml; Total: 1000ml. aa1 Outcome: 02:38 Discharge ordered by . bryn 02:48 Discharged to home ambulatory, with family. aa1 02:48 Condition: good 02:48 Discharge instructions given to patient, family, Instructed on discharge instructions, follow up and referral plans. medication usage, Demonstrated understanding of instructions, follow-up care, medications, Prescriptions given X 1. 02:49 Patient left the ED. aa1 Signatures: Lakeisha Paredes RN RN aa1 Lobito Orr PA PA jmm Sanford, Demi ds1 Arin Hermosillo RN RN tl2
--- NOTE | 2019-01-24 02:38 | EDPHYS ---
Physician Documentation [facility] Name: Michel Rutherford Age: 18 yrs Sex: Male : 2000 Arrival Date: 01/23/2019 Time: 23:41 Bed 6 Private MD: ED Physician Franco Payne HPI: 01/23 23:42 This 18 yrs old Male presents to ER via EMS with complaints of Probable jmm Seizure, Vomiting. 23:42 The patient presents the episode(s) was witnessed, by a friend. Character of jmm seizure(s): Loss of consciousness: it is not known if the patient experienced loss of consciousness, Motor activity: generalized, Incontinence: none, Apnea: the patient did not experience apnea, Circulation: it is unknown whether or not the patient experienced a disturbance in pulse. Seizure onset: just prior to arrival. Seizure Hx: Last seizure: The patient's last seizure. Associated injury: The patient did not suffer any apparent associated injury. This is a 18 year old male that presents to the ED with vomiting. Patient states he can not recall the event but states he recently smoked cbd oil. patient states having a similar episode after smoking cbd oil this past September. . Historical: - Allergies: 23:57 No Known Allergies; aa1 - Home Meds: 23:57 None [Active]; aa1 - PMHx: 23:57 Seizures; aa1 - PSHx: 23:57 None; aa1 - Immunization history:: Flu vaccine is not up to date. - Social history:: Smoking status: Patient/guardian denies using tobacco, Patient/guardian denies using street drugs, IV drugs. - Ebola Screening: : No symptoms or risks identified at this time. ROS: 23:42 Constitutional: Negative for fever, chills, and weight loss, Cardiovascular: Negative jmm for chest pain, palpitations, and edema, Respiratory: Negative for shortness of breath, cough, wheezing, and pleuritic chest pain. 23:42 Abdomen/GI: Negative for abdominal pain, vomiting. 23:42 Neuro: Positive for headache, seizure activity. 23:42 All other systems are negative. Exam: 23:42 Constitutional: This is a well developed, well nourished patient who is awake, alert, jmm and in no acute distress. Head/Face: atraumatic. Eyes: EOMI, no conjunctival erythema appreciated ENT: Moist Mucus Membranes Neck: Trachea midline, Supple Chest/axilla: Normal chest wall appearance and motion. Cardiovascular: Regular rate and rhythm. No edema appreciated 23:42 Cardiovascular: Rate: normal, Rhythm: regular. 23:42 Respiratory: the patient does not display signs of respiratory distress, Respirations: normal, Breath sounds: are clear throughout. 23:42 Abdomen/GI: Inspection: abdomen appears normal, Bowel sounds: normal, Palpation: abdomen is soft and non-tender, in all quadrants. 23:42 Musculoskeletal/extremity: ROM: intact in all extremities. 23:42 Skin: Appearance: Color: normal in color. 23:42 Neuro: Orientation: is normal, Mentation: is normal, Memory: is normal. 23:42 Psych: Behavior/mood is pleasant, cooperative. Vital Signs: 23:41 BP 115 / 64; Pulse 95; Resp 20; Temp 98.3; Pulse Ox 99% on R/A; Weight 72.57 kg; Height aa1 5 ft. 8 in. (172.72 cm); Pain 8/10; 01/24 00:50 BP 104 / 66; Pulse 66; Resp 20; Pulse Ox 99% on R/A; tl2 01:26 BP 129 / 76; Pulse 61; Resp 14; Pulse Ox 99% on R/A; aa1 02:35 BP 102 / 57; Pulse 61; Resp 16; Pulse Ox 98% on R/A; aa1 01/23 23:41 Body Mass Index 24.33 (72.57 kg, 172.72 cm) aa1 MDM: 01/23 23:52 Patient medically screened. [facility] 01/24 02:35 Data reviewed: vital signs, nurses notes. Counseling: I had a detailed discussion with [facility] the patient and/or guardian regarding: the historical points, exam findings, and any diagnostic results supporting the discharge/admit diagnosis, lab results, the need for outpatient follow up, to return to the emergency department if symptoms worsen or persist or if there are any questions or concerns that arise at home. ED course: Patient admitted to CBD oil use prior to episode. Patient states ingesting CBD oil prior to the previous ED visit. Patient tolerates PO in the ED. Patient has been alert with no focal deficits throughout the stay. I discussed results with the patient and family along with the need for further evaluation by neurology. given seizure precautions. Patient and family understood and agrees with the plan of care. . 01/23 23:42 Order name: Acetaminophen; Complete Time: 00:36 [facility] 01/23 23:42 Order name: Basic Metabolic Panel; Complete Time: 00:36 [facility] 01/23 23:42 Order name: CBC with Diff; Complete Time: 00:36 [facility] 01/23 23:42 Order name: ETOH Level; Complete Time: 00:37 [facility] 01/23 23:42 Order name: Hepatic Function; Complete Time: 00:36 [facility] 01/23 23:42 Order name: PT-INR; Complete Time: 00:36 [facility] 01/23 23:42 Order name: Ptt, Activated; Complete Time: 00:36 [facility] 01/23 23:42 Order name: Salicylate; Complete Time: 00:36 [facility] 01/23 23:42 Order name: Urine Drug Screen; Complete Time: 02:33 [facility] 01/23 23:42 Order name: EKG; Complete Time: 23:42 [facility] 01/24 01:57 Order name: Urine Dipstick--Ancillary (enter results); Complete Time: 02:05 [facility] 01/23 23:42 Order name: EKG - Nurse/Tech; Complete Time: 01:45 [facility] 01/23 23:42 Order name: IV Saline Lock; Complete Time: 23:50 [facility] 01/23 23:42 Order name: Labs collected and sent; Complete Time: 23:57 [facility] 01/23 23:42 Order name: Urine Dipstick-Ancillary (obtain specimen); Complete Time: 01:45 [facility] 01/24 01:14 Order name: PO challenge; Complete Time: 01:43 [facility] Administered Medications: 00:16 Drug: NS 0.9% 1000 ml Route: IV; Rate: 1 bolus; Site: left antecubital; aa1 01:43 Follow up: IV Status: Completed infusion; IV Intake: 1000ml aa1 00:16 Drug: Zofran 4 mg Route: IVP; Site: left antecubital; aa1 01:16 Follow up: Response: No adverse reaction; Nausea is decreased aa1 01:44 Drug: Motrin 400 mg Route: PO; aa1 02:44 Follow up: Response: No adverse reaction; Pain is decreased aa1 Disposition: 01/24/19 02:38 Discharged to Home. Impression: seizure, drug abuse, vomiting. - Condition is Stable. - Discharge Instructions: Seizure, Adult. - Prescriptions for Zofran ODT 4 mg Oral tablet,disintegrating - place 1 tablet by TRANSLINGUAL route every 4-6 hours; 20 tablet. - Medication Reconciliation Form, Thank You Letter, Antibiotic Education, Prescription Opioid Use form. - Follow up: Yadiel Cabrera MD; When: 2 - 3 days; Reason: Recheck today's complaints, Continuance of care, Re-evaluation by your physician. Addendum: 01/25/2019 07:22 Co-signature as Attending Physician, Franco Payne MD I agree with the assessment and t w4 plan of care. Signatures: Dispatcher [employer] EDMS Lakeisha Paredes, RN RN aa1 Lobito Orr PA PA Franco Alfredo MD MD tw4 Corrections: (The following items were deleted from the chart) 01/24 02:49 02:38 01/24/2019 02:38 Discharged to Home. Impression: seizure; drug abuse; vomiting. aa1 Condition is Stable. Forms are Medication Reconciliation Form, Thank You Letter, Antibiotic Education, Prescription Opioid Use. Follow up: Yadiel Cabrera; When: 2 - 3 days; Reason: Recheck today's complaints, Continuance of care, Re-evaluation by your physician. bryn
[2019-01-24 02:53] VITALS: TEMP 98.3
[2019-01-24 02:57] VITALS: BP 102/57; O2SAT 98
--- NOTE | 2019-01-24 07:13 | EKG ---
Test Date: 2019-01-24 Test Time: 00:06:35 Desk Manager: DAIANA MEASUREMENT RESULTS: Intervals: Rate: 80 IA: 172 QRSD: 98 QT: 368 QTc: 424 [place]: P: 67 IA: 172 QRS: 67 T: 48 INTERPRETIVE STATEMENTS: Normal sinus rhythm Normal ECG Compared to ECG 10/03/2018 16:33:12 No significant changes Electronically Signed On 01-24-19 07:12:12 CDT by Christopher Alvarado
== END 2019-01-24 02:49 | disposition home or self-care (01) ==
LOC: ER 23:40
DX: F12.10 Cannabis abuse, uncomplicated (principal); R56.9 Unspecified convulsions
CPT/HCPCS: 36415; 80048; 80076; 80307; 80320; 80329; 81003; 85025; 85610; 85730; 93005; J2405; J7030